=== PATIENT | female | born 1975 | race Caucasian/White ===

== ENCOUNTER 2017-04-13 19:35 | Emergency (ER) | payer SELFPAY ==
[2017-04-13] MEDS ORDERED: OXYCODONE HCL IR 5 MG TABLET PO ONE (20:01)
[2017-04-13] MEDS ORDERED: AMOXICILLIN TR/POT CLAVULANATE 500-125 MG TAB PO ONE (21:53)
--- NOTE | 2017-04-13 22:21 | ER Document Report ---
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 Patient states as she went by the dog he became somewhat aggressive when around the other side of her bike and bit her in the back of the knee on the left leg. According to patient dog is being monitored and she does not want to do any injections for rabies because it will be monitored and she is up-to-date on her tetanus shots. Patient also states she did not really get a good look at the area but believes she has 2 areas that are bleeding. No other injuries were reported or sustained TRAVEL OUTSIDE OF THE [place] IN LAST 30 DAYS: No - HPI Location of injury: LLE Severity of injury: Bitten Onset: Just prior to arrival Quality of pain: Throbbing. denies: No pain Pain Level: 3 Severity: Moderate Context of attack: "Provoked" attack, Approached animal, Entered animal's domain Type of animal: Dog Appearance of animal: Appeared well Animal's immunizations: Not immunized Animal captured or known: Yes Animal control notified: No Animal control form completed: No - Related Data Allergies/Adverse Reactions: Iodinated Contrast- Oral and IV Dye [IV Dye, Iodine Containing] Allergy (Mild, Verified 12/05/14 05:37) acetaminophen [From Tylenol] Adverse Reaction (Verified 08/19/13 13:24) NSAIDS (Non-Steroidal Anti-Inflamma [Nsaids] Adverse Reaction (Verified 13:24) Past Medical History - Social History Smoking Status: Unknown if Ever Smoked Family History: Reviewed & Not Pertinent Patient has suicidal ideation: No Patient has homicidal ideation: No - Past Medical History Cardiac Medical History: Reports: Hx Hypertension Pulmonary Medical History: Reports: Hx Bronchitis, Hx Pneumonia Neurological Medical History: Reports: Hx Migraine Endocrine Medical History: Denies: Hx Diabetes Mellitus Type 2 Renal/ Medical History: Reports: Hx Kidney Stones, Hx Ovarian Cysts, Hx Pelvic Inflammatory Disease. Denies: Hx Peritoneal Dialysis GI Medical History: Reports: Hx Gastritis, Hx Gastroesophageal Reflux Disease, Hx Liver Failure, Hx Ulcer Musculoskeltal Medical History: Reports Hx Arthritis, Reports Hx Musculoskeletal Trauma Psychiatric Medical History: Reports: Hx Bipolar Disorder Traumatic Medical History: Reports: Hx Fractures Past Surgical History: Reports: Hx Section - x1, Hx Cholecystectomy, Hx Orthopedic Surgery - left shoulder/left foot - Immunizations Immunizations up to date: Yes Hx Diphtheria, Pertussis, Tetanus Vaccination: Yes Review of Systems - Review of Systems Constitutional: No symptoms reported EENT: No symptoms reported Cardiovascular: No symptoms reported Respiratory: No symptoms reported Gastrointestinal: No symptoms reported Genitourinary: No symptoms reported Female Genitourinary: No symptoms reported Musculoskeletal: No symptoms reported, Joint pain, Muscle pain, Leg swelling Skin: Other - Puncture wounds left popliteal area Hematologic/Lymphatic: No symptoms reported Neurological/Psychological: No symptoms reported -: Yes All other systems reviewed and negative Physical Exam - Vital signs Vitals: Temp Pulse Resp BP Pulse Ox 98.1 F 76 18 148/94 H 148 H 04/13/17 19:42 04/13/17 19:42 04/13/17 19:42 04/13/17 19:42 04/13/17 19:42 - General General appearance: Alert, Other - Uncomfortable appearing In distress: Moderate - HEENT Head: Normocephalic, Atraumatic Eyes: Normal Mouth/Lips: Normal Pharynx: Normal Neck: Normal - Respiratory Respiratory status: No respiratory distress Chest status: Nontender Breath sounds: Normal. No: Rales, Rhonchi, Stridor, Wheezing Chest palpation: Normal - Cardiovascular Rhythm: Regular Heart sounds: Normal auscultation Murmur: No - Extremities General upper extremity: Normal inspection, Nontender, Normal color, Normal ROM , Normal temperature General lower extremity: Tender, Normal temperature, Normal weight bearing. No : Normal inspection, Normal ROM, Normal strength, Tiffani's sign Knee: Tender, Laceration, Pain with ROM, Other - Examination patient's left popliteal space shows she has a 1 large puncture rip kind of laceration on the top portion of the popliteal space laterally. Also there is a puncture wound in the top portion of the calf on the medial portion. The puncture wound is the size of a large dog's tooth unable to tell her determine the depth. Nonbleeding currently the original and worst portion is a 2 cm rib puncture laceration as stated that is on the left popliteal space lateral side of the popliteal area. It is approximately 2 cm long by a centimeter wide with a tooth when he had and dragged across. Again unable to tell the depth. It was bleeding somewhat profusely on first examination. Patient has full range of motion in the knee and there is no joint space involvement at this time. This is all posterior left knee. There are a few other small abrasions in the area but no other puncture wounds.. No: Normal, Ecchymosis, Instability, Joint effusion - Skin Skin Temperature: Warm Skin Moisture: Moist Skin Color: Erythema, Other - See knee above for description of the wound. Course - Vital Signs Vital signs: Temp Pulse Resp BP Pulse Ox 98.1 F 76 18 148/94 H 148 H 04/13/17 19:42 04/13/17 19:42 04/13/17 19:42 04/13/17 19:42 04/13/17 19:42 - Transfer of Care Notes: 04/13/17 22:25 Discussed with patient the options of having the rabies shot. She is elected not to have them in which I agree at this time the dog is being monitored and kept aside. Does not sound like it was a unprovoked type experience that always protecting his area. I will place patient on Augmentin as well as a little pain medication I have loosely sutured together she will need to come back anywhere from 8-10 days for us to remove those. Procedures - Laceration/Wound Repair Left Posterior Knee Time completed: 22:29 Wound length (cm): 2 Wound's Depth, Shape: Irregular, Other - Sick puncture laceration Laceration pre-procedure: Chloraprep applied, Shur-Clens applied Anesthetic type: 1% Lidocaine Volume Anesthetic (mLs): 12 Wound explored: Contaminated Irrigated w/ Saline (mLs): 800 Wound Debrided: Moderate Wound Repaired With: Sutures Suture Size/Type: 4:0, Prolene Number of Sutures: 4 Layer Closure?: No Deep Layer Suture Size/Type: Other - There is was not a total closure this was a dog bite so we placed 3 sutures on the first largest laceration to to hold and want to hold the middle together but left open. And the one puncture adama below that we put one suture to also hold it together. Post-procedure wound care: Sterile dressing applied Post-procedure NV exam normal: Yes Complications: No Discharge - Discharge Clinical Impression: Dog bite Qualifiers: Encounter type: initial encounter Qualified Code(s): W54.0XXA - Bitten by dog, initial encounter Disposition: HOME, SELF-CARE Additional Instructions: Animal Bites Animal bites are often heavily contaminated with bacteria. In spite of thorough cleansing and proper treatment, these wounds frequently become infected. Bite wounds of the hands are especially prone to complications. Bites are dressed, if possible. Large wounds may require suturing after internal cleansing. Because of infection risk, some large wounds must remain unstitched. Your doctor is trained to advise you on the best treatment for your bite. Call the doctor at once if the wound becomes red, swollen, warm, increasingly painful, or if it begins to drain. Danger signs also include red streaks up the involved extremity, swollen glands in the groin or under the arm , or fever and chills. The risk of rabies from domestic animals is very low. Bats, sick animals, and wild animals may expose you to rabies. The physician, or the health department, will inform you if you will need to receive the rabies vaccine. Home keep area clean and dry as much as possible change dressing at least twice a day and when wet or dirty. You may apply antibiotic cream or ointment to the area when you change dressings. Take all of the antibiotics this is highly important. As I have informed you we could not solely puncture wounds together because they are very dirty with the hypodermic type presentation of canine teeth. We have just pulled them together so that they would not split further and you can have better chance and healing well. However monitor this closely if you should notice any seepage of pus when the area becomes extremely inflamed and warm to touch or you have any concerns that you are sure this is not healing correctly return at once to ER. If all goes well return to ER in 8- 10 days for the suture removal. Highly recommend that she maintain contact with animal control and/or the pupil of the dog to monitor him for the next 14 days. If for any reason to change her mind about having a tetanus shot or are unsure whether you needed are not return to ER for a recheck. Prescriptions: Amox Tr/Potassium Clavulanate [Augmentin 875-125 Tablet] 1 tab PO BID 14 Days # 28 tablet Oxycodone HCl [Oxycontin Ir 5 Mg Tablet] 1 - 2 mg PO Q4H PRN #15 tablet PRN Reason: For Pain Forms: Elevated Blood Pressure Referrals: CLARISA MCGOVERN MD [Primary Care Provider] - Follow up as needed
[2017-04-14 03:10] VITALS: BP 139/82
== END 2017-04-13 22:30 | disposition home or self-care (01) ==
LOC: ER 19:35
PROC: 0HQLXZZ Repair Left Lower Leg Skin, External Approach (ICD-10-PCS; principal; 2017-04-13)
DX: S81.052A Open bite, left knee, initial encounter (principal); W54.0XXA Bitten by dog, initial encounter; K21.9 Gastro-esophageal reflux disease without esophagitis; I10 Essential (primary) hypertension; Z87.442 Personal history of urinary calculi; Z90.49 Acquired absence of other specified parts of digestive tract; Z88.6 Allergy status to analgesic agent
CPT/HCPCS: 99283

== ENCOUNTER 2018-11-18 21:27 | Emergency (ER) | payer SELFPAY ==
[2018-11-19] MEDS ORDERED: NORMAL SALINE 1000 ML 1,000 ML IV ONE (00:51)
[2018-11-19] MEDS ORDERED: HYDROMORPHONE HCL INJ/PF 2 MG/ML AMPULE IV ONE ×2 (00:52→04:07)
[2018-11-19] MEDS ORDERED: ONDANSETRON HCL INJ/PF 4 MG/2 ML SDV IV ONE (00:52)
--- NOTE | 2018-11-19 00:54 | ER Document Report ---
ED General - General Chief Complaint: Abdominal Pain Stated Complaint: ABDOMINAL PAIN Time Seen by Provider: 11/19/18 00:41 Primary Care Provider: CLARISA MCGOVERN MD [NO LOCAL MD] - Follow up as needed Mode of Arrival: Ambulatory Information source: Patient Notes: This is a 43-year-old female with a history of bipolar affective disorder, hypertension, acute renal failure, liver failure, hep C. Patient presents to the emergency room with abdominal pain which is in the upper quadrants. Patient denies any vomiting. Patient states that it has been intermittent for the past month. She denies any fever. She does report alternating constipation with diarrhea. She denies any blood in the stool. She denies any recent illnesses. She has had a number of pelvic surgeries ( complicated by infection, ovarian cysts), status post cholecystectomy. TRAVEL OUTSIDE OF THE [place] IN LAST 30 DAYS: No - HPI Onset: Last week Onset/Duration: Gradual Quality of pain: Dull Severity: Moderate Pain Level: 2 Associated symptoms: Other. denies: Chills, Fever, Shortness of breath Exacerbated by: Denies Relieved by: Denies - Constipation Similar symptoms previously: Yes Recently seen / treated by doctor: No - Related Data Allergies/Adverse Reactions: Iodinated Contrast- Oral and IV Dye [IV Dye, Iodine Containing] Allergy (Mild, Verified 12/05/14 05:37) acetaminophen [From Tylenol] Adverse Reaction (Verified 08/19/13 13:24) NSAIDS (Non-Steroidal Anti-Inflamma [Nsaids] Adverse Reaction (Verified 08/19/13 13:24) Past Medical History - General Information source: Patient - Social History Smoking Status: Current Some Day Smoker Cigarette use (# per day): Yes Chew tobacco use (# tins/day): No - Pack per day Smoking Education Provided: No Frequency of alcohol use: None Drug Abuse: None Lives with: Alone Family History: Reviewed & Not Pertinent Patient has suicidal ideation: No Patient has homicidal ideation: No - Past Medical History Cardiac Medical History: Reports: Hx Hypertension Pulmonary Medical History: Reports: Hx Bronchitis, Hx Pneumonia Neurological Medical History: Reports: Hx Migraine Endocrine Medical History: Denies: Hx Diabetes Mellitus Type 2 Renal/ Medical History: Reports: Hx Kidney Stones, Hx Ovarian Cysts, Hx Pelvic Inflammatory Disease. Denies: Hx Peritoneal Dialysis GI Medical History: Reports: Hx Gastritis, Hx Gastroesophageal Reflux Disease, Hx Liver Failure, Hx Ulcer Musculoskeletal Medical History: Reports Hx Arthritis, Reports Hx Musculoskeletal Trauma Psychiatric Medical History: Reports: Hx Bipolar Disorder Traumatic Medical History: Reports: Hx Fractures Past Surgical History: Reports: Hx Section - x1, Hx Cholecystectomy, Hx Orthopedic Surgery - left shoulder/left foot - Immunizations Immunizations up to date: Yes Hx Diphtheria, Pertussis, Tetanus Vaccination: Yes Review of Systems - Review of Systems Constitutional: denies: Chills, Fever EENT: No symptoms reported Cardiovascular: No symptoms reported Respiratory: No symptoms reported Gastrointestinal: See HPI Genitourinary: No symptoms reported Female Genitourinary: No symptoms reported Musculoskeletal: No symptoms reported Skin: No symptoms reported Hematologic/Lymphatic: No symptoms reported Neurological/Psychological: No symptoms reported Physical Exam - Vital signs Vitals: Temp Pulse Resp BP Pulse Ox 98.3 F 83 18 153/85 H 99 11/18/18 21:38 11/18/18 21:38 11/18/18 21:38 11/18/18 21:38 11/18/18 21:38 Notes: Physical exam: GENERAL: Patient is alert and oriented x3, no acute distress HEAD: Atraumatic, normocephalic. EYES: Pupils equal round and reactive to light, extraocular movements intact, sclera anicteric, conjunctiva are normal. ENT: TMs normal, nares patent, oropharynx clear without exudates. Moist mucous membranes. NECK: Normal range of motion, supple without obvious mass or JVD. LUNGS: Breath sounds clear to auscultation bilaterally and equal. No wheezes rales or rhonchi. HEART: Regular rate and rhythm without murmurs, rubs or gallops. ABDOMEN: Soft, normoactive bowel sounds. Mild tenderness to palpation the upper abdomen. No guarding, no rebound. No masses appreciated. EXTREMITIES: Normal range of motion, no pitting or edema. No clubbing or cyanosis. NEUROLOGICAL: Cranial nerves II through XII grossly intact. Normal speech, moving all extremities. PSYCH: Normal mood, normal affect. SKIN: Warm, Dry, normal turgor, no rashes or lesions noted. Course - Re-evaluation Re-evalutation: 11/19/18 04:37 I discussed the results of the blood work as well as a CT. The plan will be for DC with a bottle of mag citrate. Some short-term pain medicine. Patient will return for any worsening pain. Her abdomen at this time is soft without any peritoneal findings. - Vital Signs Vital signs: Temp Pulse Resp BP Pulse Ox 98.3 F 83 18 137/83 H 99 11/18/18 21:38 11/18/18 21:38 11/18/18 21:38 11/19/18 02:01 11/19/18 02:01 - Laboratory Result Diagrams: 11/19/18 00:42 11/19/18 00:42 Laboratory results interpreted by me: 11/19/18 11/19/18 00:42 00:42 RDW 14.5 H Potassium 3.3 L AST 37 H - Diagnostic Test Radiology reviewed: Image reviewed, Reports reviewed - CT shows no acute surgical pathology. There is an abundance of stool. Discharge - Discharge Clinical Impression: Abdominal pain Condition: Stable Disposition: HOME, SELF-CARE Instructions: Abdominal Pain ([facility]) Additional Instructions: As we discussed, the CT showed no acute surgical pathology. There was an abundance of stool and this can sometimes give rise to significant abdominal discomfort. I would like you to drink the bottle of mag citrate slowly over the next several hours at home. I will prescribe some short-term pain medicine and nausea medicine. Follow-up with your primary care doctor. Return to the emergency room for worsening pain. Prescriptions: Ondansetron HCl [Zofran 4 mg Tablet] 1 - 2 tab PO Q4H PRN #10 tablet PRN Reason: Oxycodone HCl/Acetaminophen [Percocet 5-325 mg Tablet] 1 - 2 tab PO ASDIR PRN #15 tablet PRN Reason: Referrals: CLARISA MCGOVERN MD [NO LOCAL MD] - Follow up as needed
[2018-11-19 01:00] LABS: ABSOLUTE EOSINOPHILS # (AUTO) 0.1 10^3/uL (0.0-0.6); ABSOLUTE LYMPHOCYTES (AUTO) 2.1 10^3/uL (0.5-4.7); ABSOLUTE MONOCYTES (AUTO) 0.6 10^3/uL (0.1-1.4); ABSOLUTE NEUT (AUTO) 2.5 10^3/uL (1.7-8.2); BASOPHILS % (AUTO) 0.6 % (0-2); EOSINOPHILS % (AUTO) 2.7 % (0-6); HEMATOCRIT 36.5 % (36.0-47.0); HEMOGLOBIN 12.2 g/dL (12.0-15.5); LYMPHOCYTES % (AUTO) 38.8 % (13-45); MEAN CORPUSCULAR HEMOGLOBIN 29.2 pg (27.0-33.4); MEAN CORPUSCULAR HGB CONC 33.4 g/dL (32.0-36.0); MEAN CORPUSCULAR VOLUME 87 fl (80-97); MONOCYTES % (AUTO) 11.9 % (3-13); PLATELET COUNT 154 10^3/uL (150-450); RED BLOOD COUNT 4.18 10^6/uL (3.72-5.28); RED CELL DISTRIBUTION WIDTH 14.5 % (11.5-14.0); TOTAL CELLS COUNTED % (AUTO) 100 %; WHITE BLOOD COUNT 5.4 10^3/uL (4.0-10.5)
[2018-11-19 01:05] LABS: APPEARANCE,URINE SLIGHTLY-CLOUDY; BILIRUBIN,URINE NEGATIVE (NEGATIVE); COLOR,URINE YELLOW; GLUCOSE, URINE NEGATIVE (NEGATIVE); KETONES,URINE NEGATIVE (NEGATIVE); LEUKOCYTE ESTERASE,URINE NEGATIVE (NEGATIVE); NITRITE,URINE NEGATIVE (NEGATIVE); PROTEIN,URINE NEGATIVE (NEGATIVE); URINE SPECIFIC GRAVITY 1.011; UROBILINOGEN,URINE NEGATIVE mg/dL (<2.0)
[2018-11-19 01:12] LABS: INTERNATIONAL RATION (INR) 0.94; PROTHROMBIN TIME 13.1 SEC (11.4-15.4)
[2018-11-19 01:40] LABS: ALANINE AMINOTRANSFERASE 45 U/L (9-52); ALBUMIN 3.8 g/dL (3.5-5.0); ALKALINE PHOSPHATASE 102 U/L (38-126); ANION GAP 11 (5-19); ASPARTATE AMINO TRANSFERASE 37 U/L (14-36); BILIRUBIN,DIRECT 0.3 mg/dL (0.0-0.4); BILIRUBIN,TOTAL 0.3 mg/dL (0.2-1.3); BLOOD UREA NITROGEN 14 mg/dL (7-20); CALCIUM 9.2 mg/dL (8.4-10.2); CARBON DIOXIDE 25 mmol/L (22-30); CHLORIDE 106 mmol/L (98-107); GLUCOSE 95 mg/dL (75-110); POTASSIUM 3.3 mmol/L (3.6-5.0); SODIUM 141.8 mmol/L (137-145); TOTAL PROTEIN 7.2 g/dL (6.3-8.2)
[2018-11-19] MEDS ORDERED: PANTOPRAZOLE SODIUM 40 MG VIAL IV ONE (03:08)
--- NOTE | 2018-11-19 04:24 | RADIOLOGY REPORT (SQ) ---
EXAM DESCRIPTION: CT ABDOMEN PELVIS WITHOUT IV CONTRAST COMPLETED DATE/TME: 11/19/2018 03:09 CLINICAL HISTORY: 43 years, Female, abdominal pain COMPARISON: None. TECHNIQUE: 298 Images stored on PACS. All CT scanners at this facility use dose modulation, iterative reconstruction, and/or weight based dosing when appropriate to reduce radiation dose to as low as reasonably achievable (ALARA). [facility]: Dose Right [facility]: CareDose [facility]: Dose Right [facility]: Teradose 4D [facility]: [employer] LIMITATIONS: None. FINDINGS: Lung bases are unremarkable. Osseous structures are grossly intact. The visualized liver, spleen, adrenal glands, pancreas, kidneys are grossly unremarkable. Status post cholecystectomy. No gross evidence for bowel obstruction. Large amount of stool in the colon. No free air or free fluid. Normal appendix. IMPRESSION: Abundant stool in the colon TECHNICAL DOCUMENTATION: Quality ID # [id number]: Final reports with documentation of one or more dose reduction techniques (e.g., Automated exposure control, adjustment of the mA and/or kV according to patient size, use of iterative reconstruction technique) copyright 2011 [email or web address]- All Rights Reserved
[2018-11-19] MEDS ORDERED: MAGNESIUM CITRATE 296 ML BOTTLE PO ONE (04:39)
[2018-11-19 04:52] VITALS: BP 124/77
== END 2018-11-19 04:52 | disposition home or self-care (01) ==
LOC: ER 21:27
DX: R10.9 Unspecified abdominal pain (principal); R10.11 Right upper quadrant pain; R10.12 Left upper quadrant pain; K59.00 Constipation, unspecified; R19.7 Diarrhea, unspecified; F17.210 Nicotine dependence, cigarettes, uncomplicated; I10 Essential (primary) hypertension
CPT/HCPCS: 96376; 99284; 96361; 96374; 96375; 36415; 83690; 85025; 85610; 81025; 80053; 81001; 74176; J3490; J1170; S0164; J2405; J7030

== ENCOUNTER 2020-03-31 14:39 | Emergency (ER) | payer SELFPAY ==
[2020-03-31 14:49] VITALS: BP 150/84
[2020-03-31] MEDS ORDERED: IBUPROFEN 600 MG TABLET PO ONE (15:22)
[2020-03-31] MEDS ORDERED: ACETAMINOPHEN 325 MG TABLET PO ONE (15:22)
--- NOTE | 2020-03-31 15:26 | ER Document Report ---
ED Medical Screen (RME) - General Chief Complaint: Shoulder Pain Stated Complaint: SHOULDER PAIN/CHEST PAIN Time Seen by Provider: 03/31/20 15:15 Mode of Arrival: Ambulatory Information source: Patient Notes: 44-year-old female patient presents emergency department chief complaint of right shoulder pain and right sided chest pain. Patient reports she had an injury 2 weeks ago, she was seen at another emergency room and they "did nothing for her". Patient reports continued pain with any range of motion of the right shoulder, she states without a sling on it feels like her shoulder is popping out of place. She also reports swelling to her right clavicle. Patient does have a in her chart and allergy to NSAIDs however she tells me that she has been taking them lately due to the pain so I have ordered Tylenol and ibuprofen for her. I have greeted and performed a rapid initial assessment of this patient. A comprehensive ED assessment and evaluation of the patient, analysis of test results and completion of the medical decision making process will be conducted by additional ED providers. I have specifically instructed the patient or family members with the patient to immediately return to any nursing staff should anything change in the patient's condition or with their chief complaint. TRAVEL OUTSIDE OF THE [place] IN LAST 30 DAYS: No - Related Data Allergies/Adverse Reactions: Iodinated Contrast Media [IV Dye, Iodine Containing] Allergy (Mild, Verified 12/05/14 05:37) acetaminophen [From Tylenol] Adverse Reaction (Verified 08/19/13 13:24) NSAIDS (Non-Steroidal Anti-Inflamma [Nsaids] Adverse Reaction (Verified 08/19/13 13:24) Past Medical History - Past Medical History Cardiac Medical History: Reports: Hx Hypertension Pulmonary Medical History: Reports: Hx Bronchitis, Hx Pneumonia Neurological Medical History: Reports: Hx Migraine Endocrine Medical History: Denies: Hx Diabetes Mellitus Type 2 Renal/ Medical History: Reports: Hx Kidney Stones, Hx Ovarian Cysts, Hx Pelvic Inflammatory Disease. Denies: Hx Peritoneal Dialysis GI Medical History: Reports: Hx Gastritis, Hx Gastroesophageal Reflux Disease, Hx Hepatitis - Hepatitis C, Hx Liver Failure, Hx Ulcer Musculoskeltal Medical History: Reports Hx Arthritis, Reports Hx Musculoskeletal Trauma Psychiatric Medical History: Reports: Hx Bipolar Disorder Traumatic Medical History: Reports: Hx Fractures Infectious Medical History: Reports: Hx Hepatitis - Hepatitis C Past Surgical History: Reports: Hx Section - x1, Hx Cholecystectomy, Hx Orthopedic Surgery - left shoulder/left foot - Immunizations Immunizations up to date: Yes Hx Diphtheria, Pertussis, Tetanus Vaccination: Yes Physical Exam - Vital signs Vitals: Temp Pulse Resp BP Pulse Ox 98.0 F 83 18 150/84 H 100 03/31/20 14:47 03/31/20 14:47 03/31/20 14:47 03/31/20 14:47 03/31/20 14:47 Course - Vital Signs Vital signs: Temp Pulse Resp BP Pulse Ox 98.0 F 83 18 150/84 H 100 03/31/20 14:47 03/31/20 14:47 03/31/20 14:47 03/31/20 14:47 03/31/20 14:47
--- NOTE | 2020-03-31 16:22 | RADIOLOGY REPORT (SQ) ---
EXAM DESCRIPTION: SHOULDER RIGHT 2 OR MORE VIEWS IMAGES COMPLETED DATE/TIME: 03/31/2020 4:11 pm REASON FOR STUDY: injury, continued pain COMPARISON: None. NUMBER OF VIEWS: Three views. TECHNIQUE: Internal rotation, external rotation, and Y view images acquired of the right shoulder. LIMITATIONS: None. FINDINGS: MINERALIZATION: Normal. BONES: No acute fracture. No worrisome bone lesions. JOINTS: No dislocation. VISUALIZED LUNGS AND RIBS: No pneumothorax. No rib fracture. SOFT TISSUES: No radiopaque foreign body. OTHER: No other significant finding. IMPRESSION: NEGATIVE STUDY OF THE RIGHT SHOULDER. NO RADIOGRAPHIC EVIDENCE OF ACUTE INJURY. TECHNICAL DOCUMENTATION: JOB ID: [id number] 2010 [employer]- All Rights Reserved Reading location - IP/workstation name: [email or web address]
--- NOTE | 2020-03-31 16:23 | RADIOLOGY REPORT (SQ) ---
EXAM DESCRIPTION: CHEST 2 VIEWS IMAGES COMPLETED DATE/TIME: 03/31/2020 4:11 pm REASON FOR STUDY: injury, continued pain COMPARISON: 12/04/2014. EXAM PARAMETERS: NUMBER OF VIEWS: two views TECHNIQUE: Digital Frontal and Lateral radiographic views of the chest acquired. RADIATION DOSE: NA LIMITATIONS: none FINDINGS: LUNGS AND PLEURA: No opacities, masses or pneumothorax. No pleural effusion. MEDIASTINUM AND HILAR STRUCTURES: No masses or contour abnormalities. HEART AND VASCULAR STRUCTURES: Heart normal size. No evidence for failure. BONES: No acute findings. HARDWARE: None in the chest. OTHER: No other significant finding. IMPRESSION: NO ACUTE RADIOGRAPHIC FINDING IN THE CHEST. TECHNICAL DOCUMENTATION: JOB ID: [id number] 2010 [employer]- All Rights Reserved Reading location - IP/workstation name: [email or web address]
== END 2020-03-31 19:36 | disposition left against medical advice (07) ==
LOC: ER 14:39
DX: R07.9 Chest pain, unspecified (principal); M25.511 Pain in right shoulder; I10 Essential (primary) hypertension; Z90.49 Acquired absence of other specified parts of digestive tract
CPT/HCPCS: 71046; 99281

== ENCOUNTER 2020-04-06 10:51 | Emergency (ER) | payer SELFPAY ==
--- NOTE | 2020-04-06 11:29 | ER Document Report ---
ED Medical Screen (RME) - General Chief Complaint: Shoulder Pain Stated Complaint: RIGHT SIDE PAIN Time Seen by Provider: 04/06/20 11:23 Mode of Arrival: Ambulatory Information source: Patient Notes: 44-year-old female presents to ED for complaint of pain and swelling to the right shoulder and chest. She states she was riding her scooter and had pushed a great distance and has noticed the pain and swelling to the right arm and chest. She states she has been to the hospital in [place] x2 had x-rays but did not get any treatment. She states she did come here on Friday and had a shoulder and chest x-ray but the shoulder has gotten more painful the chest is popping. She states she was told that she had costochondritis but the pain is continuing to get worse and the swelling is getting worse. She states she does smoke half pack of cigarettes has a history of liver failure for overdose of Tylenol. She states she has been taking Tylenol and ibuprofen for this pain. She is alert oriented respirations regular nonlabored speaking in full sentences. I have greeted and performed a rapid initial assessment of this patient. A comprehensive ED assessment and evaluation of the patient, analysis of test results and completion of medical decision making process will be conducted by an additional ED providers. TRAVEL OUTSIDE OF THE [place] IN LAST 30 DAYS: No - Related Data Allergies/Adverse Reactions: Iodinated Contrast Media [IV Dye, Iodine Containing] Allergy (Mild, Verified 04/06/20 11:22) acetaminophen [From Tylenol] Adverse Reaction (Verified 04/06/20 11:22) NSAIDS (Non-Steroidal Anti-Inflamma [Nsaids] Adverse Reaction (Verified 04/06/20 11:22) Past Medical History - Social History Chew tobacco use (# tins/day): No Frequency of alcohol use: former Drug Abuse: None - Past Medical History Cardiac Medical History: Reports: Hx Hypertension Pulmonary Medical History: Reports: Hx Bronchitis, Hx Pneumonia Neurological Medical History: Reports: Hx Migraine Endocrine Medical History: Denies: Hx Diabetes Mellitus Type 2 Renal/ Medical History: Reports: Hx Kidney Stones, Hx Ovarian Cysts, Hx Pelvic Inflammatory Disease. Denies: Hx Peritoneal Dialysis GI Medical History: Reports: Hx Gastritis, Hx Gastroesophageal Reflux Disease, Hx Hepatitis - Hepatitis C, Hx Liver Failure, Hx Ulcer Musculoskeltal Medical History: Reports Hx Arthritis, Reports Hx Musculoskeletal Trauma Psychiatric Medical History: Reports: Hx Bipolar Disorder Traumatic Medical History: Reports: Hx Fractures Infectious Medical History: Reports: Hx Hepatitis - Hepatitis C Past Surgical History: Reports: Hx Section - x1, Hx Cholecystectomy, Hx Orthopedic Surgery - left shoulder/left foot - Immunizations Immunizations up to date: Yes Hx Diphtheria, Pertussis, Tetanus Vaccination: Yes Physical Exam - Vital signs Vitals: Temp Pulse Resp BP Pulse Ox 98.2 F 89 18 134/67 H 100 04/06/20 10:55 04/06/20 10:55 04/06/20 10:55 04/06/20 10:55 04/06/20 10:55 Course - Vital Signs Vital signs: Temp Pulse Resp BP Pulse Ox 98.2 F 89 18 134/67 H 100 04/06/20 10:55 04/06/20 10:55 04/06/20 10:55 04/06/20 10:55 04/06/20 10:55
--- NOTE | 2020-04-06 12:15 | RADIOLOGY REPORT (SQ) ---
EXAM DESCRIPTION: SHOULDER RIGHT 2 OR MORE VIEWS IMAGES COMPLETED DATE/TIME: 04/06/2020 12:03 pm REASON FOR STUDY: Pain swelling chest and right shoulder COMPARISON: 03/31/2020 NUMBER OF VIEWS: Three views. TECHNIQUE: Internal rotation, external rotation, and Y view images acquired of the right shoulder. LIMITATIONS: None. FINDINGS: MINERALIZATION: Normal. BONES: No acute fracture. No worrisome bone lesions. JOINTS: No dislocation. Incidental note is made of mild acromioclavicular arthropathy. VISUALIZED LUNGS AND RIBS: No pneumothorax. No rib fracture. SOFT TISSUES: No radiopaque foreign body. OTHER: No other significant finding. IMPRESSION: No evidence of acute osseous injury. Incidental finding of mild acromioclavicular arthr opathy. TECHNICAL DOCUMENTATION: JOB ID: [id number] 2010 [employer]- All Rights Reserved Reading location - IP/workstation name: [email or web address]
--- NOTE | 2020-04-06 12:16 | RADIOLOGY REPORT (SQ) ---
EXAM DESCRIPTION: CHEST 2 VIEWS IMAGES COMPLETED DATE/TIME: 04/06/2020 12:03 pm REASON FOR STUDY: Pain swelling chest and right shoulder COMPARISON: 03/31/2020 EXAM PARAMETERS: NUMBER OF VIEWS: two views TECHNIQUE: Digital Frontal and Lateral radiographic views of the chest acquired. RADIATION DOSE: NA LIMITATIONS: none FINDINGS: LUNGS AND PLEURA: No opacities, masses or pneumothorax. No pleural effusion. MEDIASTINUM AND HILAR STRUCTURES: No masses or contour abnormalities. HEART AND VASCULAR STRUCTURES: Heart normal size. No evidence for failure. BONES: No acute findings. HARDWARE: None in the chest. OTHER: No other significant finding. IMPRESSION: NO ACUTE RADIOGRAPHIC FINDING IN THE CHEST. TECHNICAL DOCUMENTATION: JOB ID: [id number] 2010 [employer]- All Rights Reserved Reading location - IP/workstation name: [email or web address]
[2020-04-06 12:30] LABS: ABSOLUTE BASOPHILS # (AUTO) 0.1 10^3/uL (0.0-0.2); ABSOLUTE EOSINOPHILS # (AUTO) 0.1 10^3/uL (0.0-0.6); ABSOLUTE LYMPHOCYTES (AUTO) 1.7 10^3/uL (0.5-4.7); ABSOLUTE MONOCYTES (AUTO) 0.8 10^3/uL (0.1-1.4); ABSOLUTE NEUT (AUTO) 7.2 10^3/uL (1.7-8.2); BASOPHILS % (AUTO) 0.6 % (0-2); EOSINOPHILS % (AUTO) 0.9 % (0-6); HEMATOCRIT 34.3 % (36.0-47.0); HEMOGLOBIN 11.8 g/dL (12.0-15.5); LYMPHOCYTES % (AUTO) 17.2 % (13-45); MEAN CORPUSCULAR HEMOGLOBIN 29.9 pg (27.0-33.4); MEAN CORPUSCULAR HGB CONC 34.3 g/dL (32.0-36.0); MEAN CORPUSCULAR VOLUME 87 fl (80-97); MONOCYTES % (AUTO) 8.2 % (3-13); PLATELET COUNT 354 10^3/uL (150-450); RED BLOOD COUNT 3.94 10^6/uL (3.72-5.28); RED CELL DISTRIBUTION WIDTH 13.3 % (11.5-14.0); SEGMENTED NEUTROPHILS % (AUTO) 73.1 % (42-78); TOTAL CELLS COUNTED % (AUTO) 100 %; WHITE BLOOD COUNT 9.9 10^3/uL (4.0-10.5)
[2020-04-06 12:51] LABS: ALBUMIN 4.1 g/dL (3.5-5.0); ALKALINE PHOSPHATASE 145 U/L (38-126); ANION GAP 13 (5-19); ASPARTATE AMINO TRANSFERASE 23 U/L (14-36); BILIRUBIN,DIRECT 0.3 mg/dL (0.0-0.4); BILIRUBIN,TOTAL 0.5 mg/dL (0.2-1.3); BLOOD UREA NITROGEN 9 mg/dL (7-20); CALCIUM 9.2 mg/dL (8.4-10.2); CARBON DIOXIDE 24 mmol/L (22-30); CHLORIDE 102 mmol/L (98-107); GLUCOSE 122 mg/dL (75-110); POTASSIUM 3.6 mmol/L (3.6-5.0); TOTAL PROTEIN 7.7 g/dL (6.3-8.2)
[2020-04-06 12:56] LABS: ACETAMINOPHEN < 10 ug/mL (10-30)
--- NOTE | 2020-04-06 14:26 | ER Document Report ---
ED Extremity Problem, Upper - General Chief Complaint: Shoulder Pain Stated Complaint: RIGHT SIDE PAIN Time Seen by Provider: 04/06/20 11:23 Mode of Arrival: Ambulatory Notes: CHIEF COMPLAINT: Continued right shoulder pain HPI: History is obtained from the patient and the record. 44-year-old female presenting for right shoulder pain for 3 to 4 weeks. States that her scooter was falling over and she went to catch it felt something injuring the right chest and shoulder. States she has been to [facility] twice as well as this emergency department once for evaluation of the shoulder issue. She has not followed up with an orthopedist or primary care provider. She states she has no insurance so prefers to come to the emergency department for management and evaluation. Patient states that she cannot lift the arm secondary to pain. Pain radiates through the chest with movement twisting or turning of the torso or palpation. No shortness of breath no fever no neck pain ROS: See HPI - all other systems were reviewed and are otherwise negative Constitutional: no fever Eyes: no drainage, no blurred vision ENT: no runny nose, no sore throat Cardiovascular: no chest pain Resp: no SOB, no cough GI: no vomiting, no diarrhea, no abdominal pain : no dysuria Integumentary: no rash Allergy: no hives Musculoskeletal: + extremity pain or swelling Neurological: no numbness/tingling, no weakness MEDICATIONS: I agree with the patient medications as charted by the RN. ALLERGIES: I agree with the allergies as charted by the RN. PAST MEDICAL HISTORY/PAST SURGICAL HISTORY: Reviewed and agree as charted by RN. SOCIAL HISTORY: Reviewed and agree as charted by RN. FAMILY HISTORY: No significant familial comorbid conditions directly related to patient complaint EXAM: Reviewed vital signs as charted by RN. CONSTITUTIONAL: Alert and oriented and responds appropriately to questions. Cachectic and disheveled appearing HEAD: Normocephalic; atraumatic EYES: PERRL; Conjunctivae clear, sclerae non-icteric ENT: normal nose; no rhinorrhea; moist mucous membranes; pharynx without lesions noted, no uvula edema or deviation, no tonsillar hypertrophy, phonation normal NECK: Supple without meningismus; non-tender; no cervical lymphadenopathy, no masses CARD: RRR; no murmurs, no clicks, no rubs, no gallops; symmetric distal pulses RESP: Normal chest excursion without splinting or tachypnea; breath sounds clear and equal bilaterally; no wheezes, no rhonchi, no rales, pulse oximetry 99% on room air not hypoxic ABD/GI: Normal bowel sounds; non-distended; soft, non-tender, no rebound, no guarding; no palpable organomegaly or masses. BACK: The back appears normal and is non-tender to palpation, there is no CVA tenderness EXT: Patient is limiting abduction internal and external rotation of the right shoulder secondary to complaints of pain. There is tenderness on palpation through the right upper anterior chest wall and around the right shoulder girdle. Radial and ulnar pulses are present in the right upper extremity. Sensation intact in the fingertips with capillary refill less than 3 seconds SKIN: Normal color for age and race; warm; dry; good turgor; no acute lesions noted NEURO: Motor and sensory function intact PSYCH: The patient's mood and manner are appropriate. Grooming and personal hygiene are poor. MDM: 44-year-old female right shoulder pain for 3 to 4 weeks. Imaging studies performed via the triage process show mild arthritis in the shoulder no visible abnormalities in the chest. Lab work was obtained via the triage process shows a normal WBC count. I suspect patient either has a rotator cuff tendinitis or injury. We spoke at length about the need to follow-up with orthopedics as we cannot fix a problem like this through the emergency department. Patient verbalizes understanding of this. I have spoken with Sheldon the rehabilitation caseworker and she will come see the patient to provide her with community resources. I will write the patient a very short course of pain medication as she has a prior drug history although I did review the patient on the [facility] aware site I did not find any entry since 2019. Patient has been taking Tylenol for pain so I will write her a 1 day course of Percocet. TRAVEL OUTSIDE OF THE [place] IN LAST 30 DAYS: No - Related Data Allergies/Adverse Reactions: Iodinated Contrast Media [IV Dye, Iodine Containing] Allergy (Mild, Verified 04/06/20 11:22) acetaminophen [From Tylenol] Adverse Reaction (Verified 04/06/20 11:22) NSAIDS (Non-Steroidal Anti-Inflamma [Nsaids] Adverse Reaction (Verified 04/06/20 11:22) Past Medical History - General Information source: Patient - Social History Smoking Status: Current Every Day Smoker Chew tobacco use (# tins/day): No Frequency of alcohol use: former Drug Abuse: None Family History: Reviewed & Not Pertinent Patient has homicidal ideation: No - Past Medical History Cardiac Medical History: Reports: Hx Hypertension Pulmonary Medical History: Reports: Hx Bronchitis, Hx Pneumonia Neurological Medical History: Reports: Hx Migraine Endocrine Medical History: Denies: Hx Diabetes Mellitus Type 2 Renal/ Medical History: Reports: Hx Kidney Stones, Hx Ovarian Cysts, Hx Pelvic Inflammatory Disease. Denies: Hx Peritoneal Dialysis GI Medical History: Reports: Hx Gastritis, Hx Gastroesophageal Reflux Disease, Hx Hepatitis - Hepatitis C, Hx Liver Failure, Hx Ulcer Musculoskeletal Medical History: Reports Hx Arthritis, Reports Hx Musculoskeletal Trauma Psychiatric Medical History: Reports: Hx Bipolar Disorder Traumatic Medical History: Reports: Hx Fractures Infectious Medical History: Reports: Hx Hepatitis - Hepatitis C Past Surgical History: Reports: Hx Section - x2, Hx Cholecystectomy, Hx Orthopedic Surgery - left shoulder/left foot - Immunizations Immunizations up to date: Yes Hx Diphtheria, Pertussis, Tetanus Vaccination: Yes Physical Exam - Vital signs Vitals: Temp Pulse Resp BP Pulse Ox 98.2 F 89 18 134/67 H 100 04/06/20 10:55 04/06/20 10:55 04/06/20 10:55 04/06/20 10:55 04/06/20 10:55 Course - Vital Signs Vital signs: Temp Pulse Resp BP Pulse Ox 98.2 F 82 18 121/81 100 04/06/20 10:55 04/06/20 13:48 04/06/20 13:48 04/06/20 13:48 04/06/20 13:48 - Laboratory Result Diagrams: 04/06/20 12:20 04/06/20 12:20 Laboratory results interpreted by me: 04/06/20 04/06/20 12:20 12:20 Hgb 11.8 L Hct 34.3 L Glucose 122 H Alkaline Phosphatase 145 H Acetaminophen < 10 L Discharge - Discharge Clinical Impression: Right shoulder injury Qualifiers: Encounter type: subsequent encounter Qualified Code(s): S49.91XD - Unspecified injury of right shoulder and upper arm, subsequent encounter Condition: Stable Disposition: HOME, SELF-CARE Instructions: Shoulder Injury ([facility]) Additional Instructions: Take the medications as prescribed. Make sure you fill and take the prescription for the steroids. You have been provided resources by the rehabilitation caseworker. You need to follow-up with orthopedics for further evaluation management or pain management. This is not a problem that can be fixed through the emergency department. You have been seen multiple times for this issue. Please call the orthopedic office or a primary care provider for reevaluation Prescriptions: Prednisone [Deltasone 20 mg Tablet] 2 tab PO DAILY 5 Days #10 tablet Oxycodone HCl/Acetaminophen [Percocet 5-325 mg Tablet] 1 tab PO Q4H PRN #10 tab PRN Reason: Referrals: JEANNIE DIXON MD [ACTIVE STAFF] - Follow up as needed MORIS MALDONADO MD [HONORARY] - Follow up as needed
[2020-04-06 14:28] LABS: APPEARANCE,URINE CLEAR; BILIRUBIN,URINE NEGATIVE (NEGATIVE); COLOR,URINE STRAW; GLUCOSE, URINE NEGATIVE (NEGATIVE); KETONES,URINE NEGATIVE (NEGATIVE); LEUKOCYTE ESTERASE,URINE NEGATIVE (NEGATIVE); NITRITE,URINE NEGATIVE (NEGATIVE); PROTEIN,URINE NEGATIVE (NEGATIVE); URINE SPECIFIC GRAVITY 1.003; UROBILINOGEN,URINE NEGATIVE mg/dL (<2.0)
[2020-04-06 14:34] LABS: URINE BARBITURATES SCREEN NEGATIVE; URINE COCAINE SCREEN NEGATIVE; URINE MARIJUANA (THC) SCREEN NEGATIVE; URINE METHADONE SCREEN NEGATIVE; URINE PHENCYCLIDINE SCREEN NEGATIVE
[2020-04-06 14:49] LABS: URINE BENZODIAZEPINES SCREEN UNCONFIRMED POSITIVE
[2020-04-06 14:50] VITALS: BP 130/71
== END 2020-04-06 14:50 | disposition home or self-care (01) ==
LOC: ER 10:51
DX: S49.91XA Unspecified injury of right shoulder and upper arm, initial encounter (principal); R07.9 Chest pain, unspecified; X58.XXXA Exposure to other specified factors, initial encounter; M19.011 Primary osteoarthritis, right shoulder; F17.200 Nicotine dependence, unspecified, uncomplicated; I10 Essential (primary) hypertension; Z91.041 Radiographic dye allergy status
CPT/HCPCS: 36415; 71046; 80053; 80307; 81001; 83690; 84703; 85025; 99284